=== PATIENT | female | born 1950 | race Hispanic/Latino ===

== ENCOUNTER 2025-01-07 14:54 | Emergency (ER) | payer OTHER, MEDICARE ==
[~2025-01-07] VITALS: Ht 157.5 cm; Wt 68.0 kg
[~2025-01-07 14:54] MED LIST: AEC81 PO; CARV6.25 PO; CLOP-31 PO; GABA300C PO; IRBE150T34 PO; LINA5TAB PO; ROSU20TA98 PO; SERT-438 PO; SUCR1TAB2 PO; [UNRECOGNIZED DRUG - OTHER] PO
--- NOTE | 2025-01-07 17:18 | HMCIMG ---
EXAM: CR right foot, 3 view. CLINICAL HISTORY: FALL, PAIN COMPARISON: None provided. FINDINGS: BONES: No acute fracture or aggressive appearing osseous lesion. JOINTS: The joint spaces appear within normal limits. No dislocation. SOFT TISSUES: The soft tissues are unremarkable. IMPRESSION: No acute osseous abnormality. /[place]
--- NOTE | 2025-01-07 17:30 | NUR ---
GRIFFIN WRAP APPLIED TO RT FOOT, PT TOLERATED WELL
[2025-01-07] MEDS: ketOROlac 15MG/ML VIAL (15MG/ML) IM SCH (17:36)
[2025-01-07] MEDS ORDERED: KETO10TA2 PO (17:46)
--- NOTE | 2025-01-07 17:46 | ERN ---
General Chief Complaint: Mechanical Fall Stated Complaint: RT FOOT PAIN, FALL Time Seen by MD: 17:36 Time Seen by Midlevel: 17:36 Source: patient History of Present Illness Initial Comments 4-year-old female presents to the ER with right ankle pain after she accidentally rolled her ankle. She reports pain and swelling to the area. Denies any other symptoms Allergies: Coded Allergies: No Known Allergies (Unverified Allergy, Unknown, 10/13/13) lisinopril (Unverified Allergy, Unknown, 07/27/24) Home Meds Reported Medications Sertraline HCl (Sertraline HCl) 25 Mg Tablet, 25 MG PO HS, TAB 05/11/21 Rosuvastatin Calcium (Rosuvastatin Calcium) 20 Mg Tablet, 20 MG PO HS, TAB 05/11/21 [Tramipexole] No Conflict Check, 0.125 MG PO BID 05/11/21 Irbesartan (Irbesartan) 150 Mg Tablet, 150 MG PO DAILY, TAB 05/11/21 Carvedilol (Carvedilol) 6.25 Mg Tablet, 6.25 MG PO BID, TAB 05/11/21 Gabapentin (Neurontin) 300 Mg Capsule, 300 MG PO HS, CAP 05/11/21 Sucralfate (Sucralfate) 1 Gm Tablet, 1 GM PO BID, TAB 05/11/21 Linagliptin (Tradjenta) 5 Mg Tablet, 5 MG PO DAILY, TAB 05/11/21 Clopidogrel Bisulfate (Plavix) 75 Mg Tablet, 75 MG PO DAILY, TAB 05/11/21 Aspirin (ASPIRIN 81 MG ECTAB) 81 Mg Ectab, 81 MG PO DAILY, TAB.EC 05/11/21 Past Medical History Past Medical History: Diabetes-Type II, High Cholesterol, Heart Disease, Hypertension Medical History Other: NEUROPATHY Past Surgical History: Other ROS Dictation CONSTITUTIONAL: Negative except for HPI HEAD/FACE: Negative except for HPI EENT: Negative except for HPI RESPIRATORY: Negative except for HPI GASTROINTESTINAL/ABDOMINAL: Negative except for HPI GENITOURINARY: Negative except for HPI MUSCULOSKELETAL: Negative except for HPI INTEGUMENTARY: Negative except for HPI NEUROLOGICAL/PSYCH: Negative except for HPI HEMATOLOGIC/LYMPHATIC: Negative except for HPI All Systems Negative, Except as noted above. 13 point review of systems assessed and all negative except for above. Physical Exam Physical Exam Dictation PHYSICAL EXAM: GENERAL: alert,, awake oriented x 3 HEENT: EOMI, Sclera non icteric, moist mucosa NECK: Supple, no JVD, trachea midline LUNGS: Clear breath sounds bilaterally. No wheezes HEART: Regular rate and rhythm. Normal S1 and S2, without murmurs ABD: Abdomen soft, nontender. Bowel sounds present EXT: Tenderness and swelling over the right lateral malleolus NEURO: Alert and oriented to person, follows commands MDM MDM: Differential diagnosis: Fracture, contusion, dislocation There are no social concerns with this patient. Prescription drug management Prescriptions will include: Toradol Medical management and examination interpretation discussions were had by me with other qualified healthcare professionals as indicated for the patient's care. ED Course Orders Procedure Category Date Status Time Foot Comp 3+Vws Rt RAD 01/07/25 Resulted 15:19 Ketorolac PHA 01/07/25 In Process Tromethamine 15mg/Ml 17:30 *Nursing CPOE 01/07/25 Transmitted Communication: 17:28 Current Medications Medications (Trade) Dose Ordered Sig/Sisi Route PRN Reason Start Time Stop Time Status Last Admin Dose Admin Ketorolac Tromethamine (toRADol) 15 mg ONCE IM 01/07/25 17:30 01/07/25 21:30 01/07/25 17:36 Vital Signs Date Time Temp Pulse Resp B/P (MAP) Pulse Ox O2 Delivery O2 Flow Rate FiO2 01/07/25 16:25 98.2 68 16 110/51 100 Room Air* 0 21 01/07/25 14:56 98.2 68 16 110/51 100 Room Air 0 [address] [id number] [place] [address] IMAGING REPORT Signed PATIENT: FITO HWANG MR#: [id number] : 1950 SEX: F AGE: 74 LOCATION: [facility] ORDER 1521 STATUS: REG ER REPORT#: [id number] SERVICE 1519 REASON: FALL, PAIN ORDERING PHYSICIAN: PRO CHAPMAN MD PROCEDURE: FT 3VW RT - FOOT COMP 3+VWS RT EXAM: CR right foot, 3 view. CLINICAL HISTORY: FALL, PAIN COMPARISON: None provided. FINDINGS: BONES: No acute fracture or aggressive appearing osseous lesion. JOINTS: The joint spaces appear within normal limits. No dislocation. SOFT TISSUES: The soft tissues are unremarkable. IMPRESSION: No acute osseous abnormality. /[place] DICTATED BY: MELVIN LAMAS Jr., MD DATE: 01/07/251819 ELECTRONICALLY SIGNED BY: MELVIN LAMAS Jr., MD DATE: 01/07/251819 DX & DISP Disposition: Discharge Departure Impression: Primary Impression: Right ankle sprain Condition: Stable Scripts Ketorolac Tromethamine (Ketorolac Tromethamine) 10 Mg Tablet 1 TAB PO BID for pain for 5 Days, #10 TAB 0 Refills Prov: ADOLPH RAM 01/07/25 Referrals: NIALL HERNANDEZ Jr., MD (PCP) Time of Disposition: 17:45 I have reviewed the case, and I agree with, Diagnosis and Plan I performed the substantive portion of the visit. I have reviewed and personally made and approve the management plan that is documented in the note by myself or the [facility]. I acknowledge for responsibility for the patient's management plan. ADOLPH RAM Jan 07, 2025 17:46
[2025-01-07 18:07] VITALS: BP 115/62; PULSE 62; RESP 16; TEMP 98.2; O2SAT 100
== END 2025-01-07 18:09 | disposition home or self-care (01) ==
LOC: EDH 14:54
DX: S93.401A Sprain of unspecified ligament of right ankle, initial encounter (principal); E11.9 Type 2 diabetes mellitus without complications; E78.00 Pure hypercholesterolemia, unspecified; I10 Essential (primary) hypertension; Z79.02 Long term (current) use of antithrombotics/antiplatelets; Z79.82 Long term (current) use of aspirin; Z79.84 Long term (current) use of oral hypoglycemic drugs; Z79.899 Other long term (current) drug therapy; Z88.8 Allergy status to other drugs, medicaments and biological substances; X50.1XXA Overexertion from prolonged static or awkward postures, initial encounter; Y93.89 Activity, other specified; Y92.89 Other specified places as the place of occurrence of the external cause; Y99.8 Other external cause status
CPT/HCPCS: 99283; 73630; 96372; J1885

== ENCOUNTER → 2025-03-28 | Outpatient (CLI) | payer OTHER, MEDICAID ==
[~2025-03-28] MED LIST changes: +APRE30TA5 PO; -CLOP-31 PO; +FERR-72 PO; +GABA-529 PO; -GABA300C PO; +NITR0.4T50 SL; +OMEP-420 PO; +OMEP20CA12 PO; +RIVA20TA PO; +ROPI0.2535 PO; +ROSU10TA72 PO; -ROSU20TA98 PO; -SERT-438 PO; -SUCR1TAB2 PO; -[UNRECOGNIZED DRUG - OTHER] PO
--- NOTE | 2025-03-29 07:23 | HMCIMG ---
EXAMINATION: SPECTRAL DOPPLER ULTRASOUND EXAMINATION OF THE BILATERAL UPPER EXTREMITY VEINS. CLINICAL HISTORY: To rule out DVT. COMPARISON: None. TECHNIQUE: Grayscale, color, and spectral Doppler images of the bilateral upper extremity veins are submitted. FINDINGS: The internal jugular, subclavian, axillary, cephalic, basilic, and brachial veins are patent. These veins show normal flow with physiological changes of phasicity and augmentation. IMPRESSION: There is no deep vein thrombosis within the bilateral upper extremities. /[place]
== END | disposition home or self-care (01) ==
LOC: RAH 11:57
PROVIDERS: ATTEND General Practice
DX: I82.90 Acute embolism and thrombosis of unspecified vein (principal); R22.33 Localized swelling, mass and lump, upper limb, bilateral; M79.641 Pain in right hand; M79.642 Pain in left hand
CPT/HCPCS: 93970